=== PATIENT | male | born 1980 | race African-American/Black ===

== ENCOUNTER 2023-12-27 15:53 | Emergency (ER) | payer BC ==
--- OUTSIDE RECORDS SUMMARY | 2023-12-27 15:57 | XMS REPORT | Continuity of Care Document ---
Author Name Unknown Address [address] [place] [address] [facility] thconnect Address [address] [place] [address] Care Team Providers Care Pallet Sorter Name Role Phone PCP, PATIENT DOES NOT HAVE A Primary Care Physic judit Unavailable STEVE SAMSON Attending Clinician Unavailable Steve Samson MD Attending Clinician [phone] Doctor Unassigned, [place] Attending Clinician U DERIAN Cantor Attending Clinician Unavailable Payers Payer Name Policy Type Policy Number Effective Date Expirati on Date Source [facility] [id number] 2021 00:00:00 [facility] PPO/POS [id number] 2018 00:00:00 Allergies, Adverse Reactions, Alerts Allergy Name Allergy Type Status Severity Reaction(s) Onset Date Inactive Date Treating Clinician Comments Source NO KNOWN ALLERGIE S Drug Class Active [facility] Social History Social Habit Start Date Stop Date Quantity Comments Source History of tobacco use Cigarette Smoker [facility] Exposure to SARS-CoV-2 (event) 2022-01-11 00:00:00 2022-01-21 06:15:00 Not sure [facility] Sex Assigned At 1980 00:00:00 1980 00:00:00 [facility] Smoking Status Start Date Stop Date Source Current every day smoker 2019-11-17 00:00:00 [facility] Medications Ordered Medication Name Filled Medication Name Start Date Stop Date Current Medication? Ordering Clinician Indication Dosage Frequency Signature (SIG) Comments Components Source ibuprofen (IBU) tablet 800 mg 01-21 12:00: 00 01-21 11:53 :00 No 800mg 800 mg, Oral, ONCE, 1 dose, On Fri01/21/22 at 0700, DANNA [facility] ibuprofen 800 mg tablet 01-21 00:00: 00 Yes [id number] 800mg Take 1 tablet by mouth every 8 (eight) hours as needed for Pain (scale 4-6). [facility] methocarbam oL 500 mg tablet 01-21 00:00: 00 Yes [id number] 500mg Take 1 tablet by mouth every 6 (six) hours as needed for Pain (scale 7-10) (MUSCLE SPASM). [facility] ketorolac 10 mg tablet 11-17 15:04: 61 Yes 10mg Take 10 mg by mouth. [facility] metaxalone 800 mg tablet 11-17 15:04: 59 Yes 800mg Take 800 mg by mouth 3 (three) times daily. [facility] Vital Signs Vital Name Observation Time Observation Value Comments S ource Systolic blood pressure 2022-01-21 11:16:00 126 mm[Hg] [facility] Diastolic blood pressure 2022-01-21 11:16:00 75 mm[Hg] [facility] Heart rate 2022-01-21 11:16:00 62 /min [facility] Body temperature 2022-01-21 11:16:00 36.5 More [facility] Respiratory rate 2022-01-21 11:16:00 18 /min [facility] Body height 2022-01-21 11:16:00 172.7 cm [facility] Body weight 2022-01-21 11:16:00 72.576 kg [facility] BMI 2022-01-21 11:16:00 24.33 kg/m2 [facility] Oxygen saturation in Arterial blood by Pulse oximetry 2022-01-21 11:16:00 99 /min [facility] Procedures Procedure Date / Time Performed Performing Clinicia n Source CONSENT/REFUSAL FOR DIAGNOSIS AND TREATMENT 2022-01-21 11:12:11 Doctor Unassigned, [place] [facility] Encounters Start Date/Time End Date/Time Encounter Type Admission Type Attending Clinicians Care Facility Care Department Encounter ID Source 2022-01-21 06:22:00 2022-01-21 07:01:00 Emergency X STEVE SAMSON [facility] ERT [id number] [facility] 2022-01-21 06:22:00 2022-01-21 07:01:00 Emergency Steve Samson S [facility] [id number] [facility] 2022-01-21 00:00:00 2022-01-21 00:00:00 Orders Only Doctor Unassigned, [place] [facility] [id number] [facility] 2020-03-27 17:00:00 2020-03-27 17:00:00 Outpatient R [facility] [id number] [facility] 2019-11-17 14:30:00 2019-11-17 14:30:00 Outpatient R DERIAN CARD [facility] [id number] [facility]
[2023-12-27 17:23] LABS: SARS-CoV-2 Antigen CONTROL BLUE LINE VIS/BG OK; SARS-CoV-2 Antigen Rapid Res Negative (Negative)
--- NOTE | 2023-12-27 17:56 | ER ---
Nurse's Notes [facility] Name: Ruddy Morris Age: 43 yrs Sex: Male : 1980 Arrival Date: 12/27/2023 Time: 15:53 Bed 12 Private MD: Diagnosis: Rash and other nonspecific skin eruption Presentation: 12/26 16:17 Chief complaint: Patient states: Rash all over body for 3 days, started on right arm nj1 and spread all over. Body aches. Sore throat. snf mold exposure. Coronavirus screen:. Ebola Screen: Patient denies travel to an Ebola-affected area in the 21 days before illness onset. Initial Sepsis Screen: Does the patient meet any 2 criteria? No. Patient's initial sepsis screen is negative. Does the patient have a suspected source of infection? No. Patient's initial sepsis screen is negative. Risk Assessment: Do you want to hurt yourself or someone else? Patient reports no desire to harm self or others. Onset of symptoms was December 24, 2023. 16:17 Method Of Arrival: Ambulatory [facility] 16:17 Acuity: ANDERSON 3 nj1 Historical: - Allergies: 16:20 No Known Allergies; nj1 - PMHx: 16:20 Hypercholesterolemia; nj1 - Immunization history:: Client reports having NOT received the Covid vaccine. - Infectious Disease History:: Denies. - Social history:: Smoking status: Reported history of juuling and/or vaping. Screenin:07 [facility] ED Fall Risk Assessment (Adult) History of falling in the last 3 months, tl4 including since admission No falls in past 3 months (0 pts) Confusion or Disorientation No (0 pts) Intoxicated or Sedated No (0 pts) Impaired Gait No (0 pts) Mobility Assist Device Used No (0 pt) Altered Elimination No (0 pt) Score/Fall Risk Level 0 - 2 = Low Risk Oriented to surroundings, Maintained a safe environment, Educated pt \T\ family on fall prevention, incl call for assistance when getting out of bed, Assessed \T\ reinforced patient's understanding of fall precautions, Hourly rounding (assess needs \T\ fall precautionary measures) done, Used ambulatory aids as needed (educated on \T\ assisted with), Used gait belt as appropriate. Abuse screen: Denies threats or abuse. Denies injuries from another. Nutritional screening: No deficits noted. Tuberculosis screening: No symptoms or risk factors identified. Assessment: 17:05 General: Appears in no apparent distress. Behavior is cooperative, anxious. Pain: tl4 Complains of pain in head. Neuro: Level of Consciousness is awake, alert, obeys commands, Oriented to person, place, time, situation, Moves all extremities. Gait is steady, Speech is normal, Reports headache Denies weakness blurred vision paresthesias numbness. Cardiovascular: Capillary refill < 3 seconds Patient's skin is warm and dry. Respiratory: Airway is patent Respiratory effort is even, unlabored, Respiratory pattern is regular, Breath sounds are clear bilaterally. Denies cough. GI: No deficits noted. No signs and/or symptoms were reported involving the gastrointestinal system. : No deficits noted. No signs and/or symptoms were reported regarding the genitourinary system. EENT: No deficits noted. No signs and/or symptoms were reported regarding the EENT system. Derm: Rash noted that is red, on scalp. Musculoskeletal: No deficits noted. No signs and/or symptoms reported regarding the musculoskeletal system. 18:24 Reassessment: No changes from previously documented assessment. Patient and/or family tl4 updated on plan of care and expected duration. Pain level reassessed. Patient is alert, oriented x 3, equal unlabored respirations, skin warm/dry/pink. Vital Signs: 16:17 BP 137 / 86; Pulse 87; Resp 18; Temp 98(TE); Pulse Ox 99% on R/A; Weight 74.84 kg; nj1 Height 5 ft. 8 in. ; Pain 3/10; 18:24 BP 122 / 72; Pulse 76; Resp 16; Temp 97.9(O); Pulse Ox 100% on R/A; Pain 0/10; tl4 16:17 Body Mass Index 25.09 (74.84 kg, 172.72 cm) nj1 16:17 Pain Scale: Adult nj1 18:24 Pain Scale: Adult tl4 ED Course: 15:57 Patient arrived in ED. ra3 15:59 Neli Jimenez FNP-C is [facility]. kb 15:59 Kobi Flores MD is Attending Physician. kb 16:20 Triage completed. nj1 16:22 Arm band placed on right wrist. nj1 16:59 Mitch Gutierrez, RN is Primary Nurse. tl4 17:05 SARS-COV-2 Antigen Rapid Sent. tl4 17:05 Strep Sent. tl4 17:05 Flu Sent. tl4 17:08 Patient has correct armband on for positive identification. Bed in low position. Call tl4 light in reach. Provided Education on: ED process. Door closed. Noise minimized. Lights dimmed. Moved to private room. 17:08 No provider procedures requiring assistance completed. Patient did not have IV access tl4 during this emergency room visit. Administered Medications: No medications were administered Medication: 17:07 VIS not applicable for this client. tl4 Outcome: 17:55 Discharge ordered by . erin 18:25 Discharged to home ambulatory, tl4 18:25 Condition: stable 18:25 Discharge instructions given to patient, Instructed on discharge instructions, follow up and referral plans. medication usage, Demonstrated understanding of instructions, follow-up care, medications, 18:26 Patient left the ED. tl4 Signatures: Neli Jimenez, ENOLOGIST-C LULU-Janette Myaorga RN RN nj1 Mitch Gutierrez RN RN tl4 Karen Nunez 3
--- NOTE | 2023-12-27 17:56 | EDPHYS ---
Physician Documentation [facility] Name: Ruddy Morris Age: 43 yrs Sex: Male : 1980 Arrival Date: 12/27/2023 Time: 15:53 Bed 12 Private MD: ED Physician Kobi Flores HPI: 12/26 17:54 This 43 yrs old Black Male presents to ER via Ambulatory with complaints of mold kb exposure:headache and rash. 17:54 Pt is a 43 year old male who presents for diffuse, itchy rash for 3 days. States he has kb been staying at a hotel and concerned that the rash is due to mold exposure. Also reports sore throat, congestion and bodyaches that started yesterday. Denies cough, fever, shortness of breath. Historical: - Allergies: 16:20 No Known Allergies; nj1 - PMHx: 16:20 Hypercholesterolemia; nj1 - Immunization history:: Client reports having NOT received the Covid vaccine. - Infectious Disease History:: Denies. - Social history:: Smoking status: Reported history of juuling and/or vaping. ROS: 17:53 Constitutional: As per HPI kb Exam: 17:53 Constitutional: This is a well developed, well nourished patient who is awake, alert, kb and in no acute distress. Head/Face: Normocephalic, atraumatic. ENT: Moist Mucous membranes Cardiovascular: Regular rate Respiratory: Respirations even and unlabored. No increased work of breathing. Talking in full sentences Abdomen/GI: Soft, non-tender. No distention MS/ Extremity: Pulses equal, no cyanosis. Neurovascular intact. Full, normal range of motion. Neuro: Awake and alert, GCS 15, oriented to person, place, time, and situation. Moves all extremities. Normal gait. 17:53 Skin: rash a mild rash is noted, rash can be described as nonspecific, and is diffusely located, Vital Signs: 16:17 BP 137 / 86; Pulse 87; Resp 18; Temp 98(TE); Pulse Ox 99% on R/A; Weight 74.84 kg; nj1 Height 5 ft. 8 in. ; Pain 3/10; 18:24 BP 122 / 72; Pulse 76; Resp 16; Temp 97.9(O); Pulse Ox 100% on R/A; Pain 0/10; tl4 16:17 Body Mass Index 25.09 (74.84 kg, 172.72 cm) nj1 16:17 Pain Scale: Adult nj1 18:24 Pain Scale: Adult tl4 MDM: 16:00 Patient medically screened. kb 17:55 Differential diagnosis: allergic reaction, parasite infection, flu, covid, strep. Data kb reviewed: vital signs, nurses notes. Counseling: I had a detailed discussion with the patient and/or guardian regarding the historical points, exam findings, and any diagnostic results supporting the discharge/admit diagnosis, lab results, the need for outpatient follow up, a family practitioner, to return to the emergency department if symptoms worsen or persist or if there are any questions or concerns that arise at home. 12/26 16:23 Order name: Flu; Complete Time: 17:38 kb 12/26 16:23 Order name: Strep; Complete Time: 17:38 kb 12/26 16:23 Order name: SARS-COV-2 Antigen Rapid; Complete Time: 17:28 kb 12/26 17:35 Order name: Throat Culture EDMS Administered Medications: No medications were administered Disposition Summary: 12/27/23 17:55 Discharge Ordered Notes: Location: Home kb Condition: Stable kb Diagnosis - Rash and other nonspecific skin eruption kb Followup: kb - With: Private Physician - When: 2 - 3 days - Reason: Recheck today's complaints, Continuance of care, Re-evaluation by your physician Followup: kb - With: Emergency Department - When: As needed - Reason: Worsening of condition Discharge Instructions: - Discharge Summary Sheet kb - Rash, Adult, [id number] kb - Scabies, Adult kb Forms: - Medication Reconciliation Form kb - Thank You Letter kb - Antibiotic Education kb - Prescription Opioid Use kb - Patient Portal Instructions kb - Leadership Thank You Letter kb Prescriptions: - Elimite 5 % Topical Cream - apply 1 application TOPICAL route one time Wash after 12 hours.; 60 gram; kb Refills: 0, Product Selection Permitted Signatures: Dispatcher [employer] EDNeli Holland, SLIDE FORMING MACHINE TENDER-C SLIDE FORMING MACHINE TENDER-Janette Mayorga, GLENDY RN nj1 Corrections: (The following items were deleted from the chart) 16:24 16:24 Influenza Screen (A \T\ B)+BA.LAB.BRZ ordered. EDMS EDMS 16:24 16:24 Group A Streptococcus Rapid Sc+BA.LAB.BRZ ordered. EDMS EDMS 16:24 16:24 SARS-COV-2 Antigen Rapid+I.LAB.BRZ ordered. EDMS EDMS
[2023-12-28 02:40] VITALS: BP 122/72; TEMP 97.9; O2SAT 100
== END 2023-12-27 18:26 | disposition home or self-care (01) ==
LOC: ER 15:53
DX: R21 Rash and other nonspecific skin eruption (principal); R51.9 Headache, unspecified; R07.0 Pain in throat; Z11.52 Encounter for screening for COVID-19
CPT/HCPCS: 36415; 87070; 87081; 87804; 87811; 99283